=== PATIENT | female | born 1970 | race African-American/Black ===

== ENCOUNTER 2018-04-21 02:48 | Emergency (ER) | payer SELFPAY ==
[2018-04-21] MEDS: HYDROcodone/APAP 5/325MG 1 TAB TABLET PO (03:21)
== END 2018-04-21 06:03 | disposition home or self-care (01) ==
LOC: ER 02:48
DX: S90.415A Abrasion, left lesser toe(s), initial encounter (principal); S97.82XA Crushing injury of left foot, initial encounter; W20.8XXA Other cause of strike by thrown, projected or falling object, initial encounter; Y93.89 Activity, other specified; Y92.89 Other specified places as the place of occurrence of the external cause; Y99.8 Other external cause status
CPT/HCPCS: 73630; 99284